=== PATIENT | female | born 1950 | race Caucasian/White ===

== ENCOUNTER 2021-11-02 22:07 | Emergency (ER) | payer MEDICARE, OTHER ==
[~2021-11-02] VITALS: Ht 167.6 cm; Wt 62.1 kg
[~2021-11-02 22:07] MED LIST: ALFALFA250 MG PO; ASPIRIN EC81 MG PO; KLONOPIN0.5 MG PO; MEGA MULTIVITA1 EACH PO; NORCO 5-325 TA1 EACH PO; VITAMIN C100 MG PO; VITAMIN D1000 UNIT PO; XANAX0.5 MG PO
[2021-11-02] MEDS ORDERED: CANDICIDAL CAP1 EACH PO (22:23)
[2021-11-03] MEDS ORDERED: CIPRO500 MG PO (01:02)
[2021-11-03] MEDS ORDERED: ZOFRAN4 MG PO (01:02)
[2021-11-03] MEDS ORDERED: HYDROCODON-ACE1 EA10 PO (01:02)
== END 2021-11-03 01:45 | disposition home or self-care (01) ==
LOC: ED 22:07
DX: N13.2 Hydronephrosis with renal and ureteral calculous obstruction (principal); K59.00 Constipation, unspecified; Z20.822 Contact with and (suspected) exposure to COVID-19; Z88.8 Allergy status to other drugs, medicaments and biological substances; Z88.2 Allergy status to sulfonamides; Z79.899 Other long term (current) drug therapy
CPT/HCPCS: 74177; 80053; 81001; 83690; 85025; 96374; 96375; 96376; 99284-25; A9270; C9803; J1170; J2405; J7040; Q9967; U0003